=== PATIENT | male | born 1960 | race Caucasian/White ===

== ENCOUNTER 2016-08-18 05:15 | Observation (INO) | payer MEDICARE ==
[~2016-08-18] VITALS: Ht 188 cm; Wt 70.0 kg
[~2016-08-18 05:15] MED LIST: LITH300C PO; RISP2TAB35 PO
[2016-08-18] MEDS ORDERED: LAMO5TB.2 PO (05:23)
[2016-08-18] MEDS ORDERED: LIDOCAINE 1%, 20ML ONE (05:35)
[2016-08-18 06:04] LABS: ACETAMINOPHEN < 2 mcg/mL (10-30); BLOOD UREA NITROGEN 20 mg/dL (7-18)
[2016-08-18 08:09] LABS: DAU SCREEN DISCLAIMER
[2016-08-18] MEDS ORDERED: DOCUSATE 100 MG CAPSULE PO PRN (11:00)
[2016-08-18] MEDS ORDERED: ACETAMINOPHEN 325 MG TABLET PO PRN (11:00)
[2016-08-18] MEDS ORDERED: OLANZAPINE 10 MG INJ IM PRN (11:00)
[2016-08-18] MEDS ORDERED: ONDANSETRON ODT 4 MG PO PRN (11:00)
[2016-08-18] MEDS ORDERED: OLANZAPINE 10 MG TABLET PO PRN (11:00)
[2016-08-18] MEDS ORDERED: BENZTROPINE 1 MG TABLET PO PRN ×2 (11:00)
[2016-08-18 11:17] VITALS: BP 109/72
[2016-08-18] MEDS ORDERED: OLANZAPINE 5 MG TABLET ONE (12:35)
[2016-08-18] MEDS ORDERED: RISPERIDONE 2 MG TABLET PO SCH (21:00)
[2016-08-18] MEDS ORDERED: LITHIUM CARBONATE 300 MG CAPSULE PO SCH (21:00)
== END 2016-08-18 16:40 ==
LOC: ED 06:44 → INTOOBSV 06:50 → EDIP 06:50 → 3E 11:12
PROVIDERS: ADMIT Internal Medicine; ATTEND Internal Medicine
DX: F22 Delusional disorders (principal); F31.9 Bipolar disorder, unspecified; Z87.891 Personal history of nicotine dependence; Z91.19 Patient's noncompliance with other medical treatment and regimen
CPT/HCPCS: 36415; 80048; 80307; 80329; 82040; 85025; 99285; G0378; G0480

== ENCOUNTER 2017-03-06 14:22 | Emergency (ER) | payer MEDICARE ==
[~2017-03-06] VITALS: Ht 193 cm; Wt 73.4 kg
[~2017-03-06 14:22] MED LIST changes: +LAMO5TB.2 PO
[2017-03-06 15:14] LABS: BASOPHILS # (AUTO) 0.03 x10^3/uL (0-0.1); BASOPHILS % (AUTO) 0 % (0-1); EOSINOPHILS # (AUTO) 0.25 x10^3/uL (0-0.4); EOSINOPHILS % (AUTO) 2 % (1-7); LYMPHOCYTES # (AUTO) 1.74 x10^3/uL (1-3.4); LYMPHOCYTES % (AUTO) 14 % (22-44); MD NO; MEAN CORPUSCULAR HEMOGLOBIN 31.4 pg (27.5-34.5); MEAN CORPUSCULAR HGB CONC 33.1 g/dL (33.2-36.2); MEAN CORPUSCULAR VOLUME 94.8 fL (81-97); MEAN PLATELET VOLUME 7.2 fL (7.4-10.4); MONOCYTES # (AUTO) 0.65 x10^3/uL (0.2-0.8); MONOCYTES % (AUTO) 5 % (2-9); NEUTROPHILS # (AUTO) 10.07 x10^3/uL (1.8-6.8); NEUTROPHILS % (AUTO) 79 % (42-75); PLATELET COUNT 269 x10^3/uL (130-400); RED BLOOD COUNT 4.87 x10^6/uL (4.38-5.82); RED CELL DISTRIBUTION WIDTH 13.5 % (9.4-14.8)
[2017-03-06 15:26] LABS: ALBUMIN 3.1 g/dL (3.4-5.0); ANION GAP 6 mmol/L (5-15); CALCIUM 8.7 mg/dL (8.5-10.1); CHLORIDE 107 mmol/L (98-107); CREATININE 0.88 mg/dL (0.7-1.3)
[2017-03-06] MEDS ORDERED: CEFTRIAXONE 250 MG ONE (16:25)
[2017-03-06] MEDS ORDERED: KETOROLAC 30 MG/1 ML ONE (16:26)
[2017-03-06] MEDS ORDERED: AZITHROMYCIN 250 MG TABLET ONE ×2 (16:26)
[2017-03-06] MEDS ORDERED: KETOROLAC 30 MG/1 ML IM ONE (16:30)
[2017-03-06] MEDS ORDERED: AZITHROMYCIN 500 MG TABLET PO ONE (16:30)
[2017-03-06] MEDS ORDERED: CEFTRIAXONE 250 MG IM ONE (16:30)
[2017-03-06] MEDS ORDERED: LIDOCAINE 1%, 10ML ONE (16:35)
[2017-03-06 16:40] VITALS: BP 106/67
[2017-03-06 16:44] LABS: MICROSCOPIC INDICATED
[2017-03-06 17:20] LABS: CULTURE INDICATED? YES
[2017-03-06] MEDS ORDERED: LEVOFLOXACIN 750 MG TABLET PO ONE (19:00)
[2017-03-06] MEDS ORDERED: LEVOFLOXACIN 750 MG TABLET ONE (19:04)
== END 2017-03-06 19:13 | disposition home or self-care (01) ==
LOC: ED 19:07
DX: N30.00 Acute cystitis without hematuria (principal); N34.2 Other urethritis; N45.1 Epididymitis; N43.1 Infected hydrocele; I86.1 Scrotal varices; B37.9 Candidiasis, unspecified; N34.1 Nonspecific urethritis; N45.3 Epididymo-orchitis
CPT/HCPCS: 36415; 76870; 80048; 81001; 82040; 85025; 87086; 87491; 87591; 96372; 99285; J0696; J1885

== ENCOUNTER 2018-12-25 20:28 | Emergency (ER) | payer MEDICARE ==
[~2018-12-25] VITALS: Ht 190.5 cm; Wt 75.0 kg
--- NOTE | 2018-12-25 20:31 | NUR ---
[id number]
--- NOTE | 2018-12-25 20:48 | NUR ---
C/O OVERALL ACHE AND NOT FEELING GOOD SINCE SUNDAY. PT HAS OPEN SORE TO MEDIAL BACK THAT HE'S HAD FOR 7 YEARS, STATES IS FROM PSORIATIC ARTHRITIS. PT C/O DIARRHEA INTERMITTENTLY FOR WEEKS. CONNECTED TO MONITORING. CALL LIGHT IN REACH. PROVIDER AT BEDSIDE. AWAITING ORDERS AT THIS TIME.
[2018-12-25] MEDS ORDERED: SODIUM CHLORIDE FLUSH 10ML SYR IVF ONE (21:00)
[2018-12-25] MEDS ORDERED: SODIUM CHLORIDE 0.9% 1,000ML IVBOLUS ONE (21:00)
[2018-12-25 21:20] VITALS: BP 115/78
--- NOTE | 2018-12-25 21:21 | NUR ---
IV START. LABS DRAWN. IVF ADMIN PER APR. EKG DONE. XRAY DONE
--- NOTE | 2018-12-25 21:30 | NUR ---
PT STATES HE CANNOT PROVIDE A STOOL SAMPLE AT THIS TIME. PT AWARE TO NOTIFIY THIS NURSE WHEN HE CAN.
[2018-12-25 21:31] LABS: BASOPHILS # (AUTO) 0.02 x10^3/uL (0-0.1); BASOPHILS % (AUTO) 0 % (0-1); EOSINOPHILS # (AUTO) 0.48 x10^3/uL (0-0.4); EOSINOPHILS % (AUTO) 7 % (1-7); LYMPHOCYTES # (AUTO) 1.76 x10^3/uL (1-3.4); LYMPHOCYTES % (AUTO) 24 % (22-44); MD NO; MEAN CORPUSCULAR HEMOGLOBIN 32.2 pg (27.5-34.5); MEAN CORPUSCULAR HGB CONC 33.2 g/dL (33.2-36.2); MEAN CORPUSCULAR VOLUME 97.1 fL (81-97); MEAN PLATELET VOLUME 7.9 fL (7.4-10.4); MONOCYTES # (AUTO) 0.55 x10^3/uL (0.2-0.8); MONOCYTES % (AUTO) 7 % (2-9); NEUTROPHILS # (AUTO) 4.57 x10^3/uL (1.8-6.8); NEUTROPHILS % (AUTO) 62 % (42-75); PLATELET COUNT 224 x10^3/uL (130-400); RED BLOOD COUNT 5.03 x10^6/uL (4.38-5.82); RED CELL DISTRIBUTION WIDTH 13.8 % (9.4-14.8)
[2018-12-25 21:39] LABS: ALANINE AMINOTRANSFERASE 20 U/L (12-78); ALBUMIN 3.5 g/dL (3.4-5.0); ANION GAP 6 mmol/L (5-15); CALCIUM 8.4 mg/dL (8.5-10.1); CHLORIDE 105 mmol/L (98-107); CREATININE 0.94 mg/dL (0.7-1.3)
[2018-12-25 21:42] LABS: ALKALINE PHOSPHATASE 79 U/L (45-117); BILIRUBIN,TOTAL 0.3 mg/dL (0.2-1.0)
--- NOTE | 2018-12-25 21:45 | NUR ---
ALL RESULTS ARE BACK AT THIS TIME. CHART UP FOR RECHECK.
[2018-12-25] MEDS ORDERED: NEOSPORIN OINT. PKT 1 PACKET ONE ×2 (21:47→22:11)
--- NOTE | 2018-12-25 22:00 | NUR ---
WOUND ON BACK CLEANSED WITH WOUND CLEANSER, APPLIED BACITRACIN AND COVERED WITH DRY DRESSING.
--- NOTE | 2018-12-25 22:09 | NUR ---
PROVIDER AT BEDSIDE TO UPDATE PT ON POC.
--- NOTE | 2018-12-25 22:25 | NUR ---
Patient/Caregiver given discharge instructions and they have confirmed that they understand the instructions. Patient ambulatory with steady gait.
== END 2018-12-25 22:25 | disposition home or self-care (01) ==
LOC: ED 21:58
DX: B34.9 Viral infection, unspecified (principal); R19.7 Diarrhea, unspecified; M19.90 Unspecified osteoarthritis, unspecified site
CPT/HCPCS: 36415; 71045; 80053; 85025; 93005; 96374; 99284; J7030